=== PATIENT | male | born 1960 | race Caucasian/White ===

== ENCOUNTER 2019-09-01 09:33 | Day surgery (SDC) | payer OTHER ==
[~2019-09-01] VITALS: Ht 180.3 cm; Wt 98.0 kg
[~2019-09-01 09:33] MED LIST: ATOR80TA59 PO; COMBAER6 INH; ISOS60TA2 PO; LISI40TA PO; MAGN400T PO; METO25TA4 PO; MULTCAP PO; NORV5TAB PO; NS 1,000 ML IV ONE; RA T500C2 PO; RANI150T PO; TERA2CAP3 PO; berberine PO
[2019-09-01] MEDS ORDERED: ALBUTEROL SULFATE 2.5 MG/0.5 ML INH NEB SOLN As Ordered ONE (10:44)
[2019-09-01] MEDS ORDERED: ALBUTEROL SULFATE 2.5 MG/0.5 ML INH NEB SOLN INH ONE (11:00)
[2019-09-01] MEDS ORDERED: PROPOFOL 200 MG/20 ML VIAL As Ordered ONE ×2 (11:19→13:03)
[2019-09-01] MEDS ORDERED: LIDOCAINE 2% INJ 100 MG/5 ML SDV (FOR ANES.) As Ordered ONE (11:19)
--- NOTE | 2019-09-01 12:25 | ROOR ---
Patient Name: Jeremy Way Procedure Date: 09/01/2019 11:50 AM Date of : 1960 Age: 58 Room: [facility] Gender: Male Note Status: Finalized Procedure: Total Colonoscopy to Cecum + Cold Snare Polypectomy + Hemoclips Indications: Screening in patient at increased risk: Colorectal cancer in mother before age 60 Providers: Amrik Hayes MD Referring MD: [facility] Mauricio Fields Md Requesting Provider: Medicines: Monitored Anesthesia Care Complications: No immediate complications. Procedure: Pre-Anesthesia Assessment: - The heart rate, respiratory rate, oxygen saturations, blood pressure, adequacy of pulmonary ventilation, and response to care were monitored throughout the procedure. The Colonoscope was introduced through the anus and advanced to the cecum, identified by appendiceal orifice and ileocecal valve. The colonoscopy was performed without difficulty. The patient tolerated the procedure well. The quality of the bowel preparation was excellent. Findings: The perianal and digital rectal examinations were normal. Non-bleeding internal hemorrhoids were found during retroflexion. The hemorrhoids were small and Grade I (internal hemorrhoids that do not prolapse). A small polyp was found at 20 cm proximal to the anus. The polyp was sessile. The polyp was removed with a cold snare. Resection and retrieval were complete. A medium polyp was found at 60 cm proximal to the anus. The polyp was sessile. The polyp was removed with a cold snare. Resection and retrieval were complete. To prevent bleeding after the polypectomy, one hemostatic clip was successfully placed (MR conditional). There was no bleeding at the end of the procedure. The exam was otherwise without abnormality on direct and retroflexion views. Impression: - Non-bleeding internal hemorrhoids. - One small polyp at 20 cm proximal to the anus, removed with a cold snare. Resected and retrieved. - One medium polyp at 60 cm proximal to the anus, removed with a cold snare. Resected and retrieved. Clip (MR conditional) was placed. - The examination was otherwise normal on direct and retroflexion views. - The exam was otherwise normal to the cecum. Recommendation: - Patient has a contact number available for emergencies. The signs and symptoms of potential delayed complications were discussed with the patient. Return to normal activities tomorrow. Written discharge instructions were provided to the patient. - High fiber diet. - Discharge patient to home. - Continue present medications. - Await pathology results. - Telephone GI clinic for pathology results in 1 week. - Repeat colonoscopy in 3 years for surveillance based on pathology results. - Return to referring physician. - The findings and recommendations were discussed with the patient's family. Amrik Hayes MD Amrik Hayes MD 09/01/2019 12:24:46 PM Electronically signed by Amrik Hayes MD Number of Addenda: 0 Note Initiated On: 09/01/2019 11:50 AM Estimated Blood Loss: Estimated blood loss: none.
[2019-09-01 12:45] VITALS: BP 144/68
== END 2019-09-01 13:05 | disposition home or self-care (01) ==
LOC: M OPP 09:33
PROVIDERS: ATTEND Internal Medicine Gastroenterology
DX: Z12.11 Encounter for screening for malignant neoplasm of colon (principal); Z80.0 Family history of malignant neoplasm of digestive organs; K64.0 First degree hemorrhoids; D12.5 Benign neoplasm of sigmoid colon; D12.4 Benign neoplasm of descending colon; I25.10 Atherosclerotic heart disease of native coronary artery without angina pectoris; Z95.5 Presence of coronary angioplasty implant and graft; R00.8 Other abnormalities of heart beat; I25.2 Old myocardial infarction; I10 Essential (primary) hypertension; E78.5 Hyperlipidemia, unspecified; E11.9 Type 2 diabetes mellitus without complications; K21.9 Gastro-esophageal reflux disease without esophagitis; M54.89 Other dorsalgia; M54.2 Cervicalgia; F41.9 Anxiety disorder, unspecified; J44.9 Chronic obstructive pulmonary disease, unspecified; R06.83 Snoring; G47.30 Sleep apnea, unspecified; F17.210 Nicotine dependence, cigarettes, uncomplicated; Z79.899 Other long term (current) drug therapy

== ENCOUNTER → 2022-07-09 | Outpatient (CLI) | payer OTHER ==
[~2022-07-09] MED LIST changes: +ISOS1TAB36 PO; -ISOS60TA2 PO; -LISI40TA PO; +LISI40TA4 PO; -MAGN400T PO; +MAGN400T33 PO; -NS 1,000 ML IV ONE
== END ==
LOC: M PLARAD 08:02
PROVIDERS: ATTEND Internal Medicine
DX: Z53.9 Procedure and treatment not carried out, unspecified reason (principal)

== ENCOUNTER → 2022-07-30 | Outpatient (CLI) | payer OTHER | LOC: M PLARAD 13:22 | PROVIDERS: ATTEND Internal Medicine | DX: R91.1 Solitary pulmonary nodule (principal) | CPT/HCPCS: 78815; A9552 ==

== ENCOUNTER → 2022-08-21 | Outpatient (REF) | payer MEDICARE, OTHER | LOC: M SFHCDERM 17:32 | PROVIDERS: ATTEND Nurse Practitioner Family | DX: D22.5 Melanocytic nevi of trunk (principal); L82.1 Other seborrheic keratosis ==

== ENCOUNTER 2023-05-22 07:17 | Inpatient (IN) | payer MEDICARE, OTHER ==
[2023-05-21 14:20] VITALS: BP 188/85; TEMP 99.3; O2SAT 99
[~2023-05-22] VITALS: Ht 180.3 cm; Wt 88.7 kg
[~2023-05-22 07:17] MED LIST changes: +CALC500T68 PO; +ISOS1TAB35 PO; +JARD1TAB3 PO; +LIDOCAINE 2% 100MG/5ML SDV (FOR ANES.) As Ordered ONE; +METO1TAB32 PO; +NESI25TA PO; +NS 1,000 ML IV ONE; +OMEG350C PO; +OMEP40CA4 PO; +POTA99CA2 PO; +RAMI1CAP21 PO; +SUPETAB44 PO; +TERA1CAP3 PO; +TRAM50TA2 PO; +VITA100093 PO; +VITA80004 PO; +VITMTA PO; +fentaNYL 100 MCG/2 ML INJECTION As Ordered ONE; +propofoL 500 MG/50 ML VIAL As Ordered ONE
[2023-05-22] MEDS ORDERED: hydrALAZINE 20MG/ML 1ML VIAL As Ordered ONE ×2 (08:38→11:41)
[2023-05-22] MEDS ORDERED: VALSARTAN 40MG TABLET (DIOVAN) PO SCH ×2 (09:00→15:00)
[2023-05-22] MEDS ORDERED: MORPHINE 2 MG/ML 1ML VIAL As Ordered ONE (10:08)
[2023-05-22] MEDS ORDERED: MORPHINE 2 MG/ML 1ML VIAL IV ONE (10:10)
[2023-05-22] MEDS ORDERED: NITROGLYCERIN 0.3MG SUBL TAB SL STA (10:32)
[2023-05-22] MEDS ORDERED: ASPIRIN 325 MG TAB PO ONE (10:35)
[2023-05-22] MEDS ORDERED: MORPHINE 2 MG/ML 1ML VIAL IV PRN ×3 (10:50→11:05)
[2023-05-22] MEDS ORDERED: NS 1,000 ML IV SCH (10:50)
[2023-05-22] MEDS ORDERED: MAALOX 30 ML SUSP *UDC PO ONE (11:00)
[2023-05-22 11:05] LABS: HEMATOCRIT 41.7 % (42.0-52.0); HEMOGLOBIN 14.9 g/dl (13.5-17.5); MEAN CORPUSCULAR HEMOGLOBIN 30.7 pg (27.0-33.0); MEAN CORPUSCULAR HGB CONC 35.7 g/dl (32.0-36.5); MEAN CORPUSCULAR VOLUME 85.8 fl (80.0-96.0); PLATELET COUNT, AUTOMATED 172 10^3/uL (150-450); RED BLOOD COUNT 4.86 10^6/uL (4.30-6.10); WHITE BLOOD COUNT 7.2 10^3/uL (4.0-10.0)
[2023-05-22 11:15] VITALS: TEMP 97
[2023-05-22 11:33] LABS: BLOOD UREA NITROGEN 16 MG/DL (9-23); CALCIUM LEVEL 8.2 MG/DL (8.3-10.6); CARBON DIOXIDE LEVEL 26 MMOL/L (20-31); CHLORIDE LEVEL 103 MMOL/L (98-107); CREATININE FOR GFR 0.92 MG/DL (0.70-1.30); GLOMERULAR FILTRATION RATE > 60.0 (>49); GLUCOSE, FASTING 151 MG/DL (74-106); POTASSIUM SERUM 3.7 MMOL/L (3.5-5.1); SODIUM LEVEL 137 MMOL/L (136-145)
[2023-05-22 11:34] LABS: CHOLESTEROL RISK RATIO 2.62 (<5); HDL CHOLESTEROL 43.5 MG/DL (>40); LDL CHOLESTEROL 49.7 MG/DL (<100); NON-HDL-C 70.5 MG/DL
[2023-05-22] MEDS ORDERED: ramipriL 5 MG CAP PO ONE (11:35)
[2023-05-22 11:36] LABS: FREE T4 1.34 NG/DL (0.89-1.76); THYROID STIMULATING HORMONE 1.242 uIU/ML (0.55-4.78)
[2023-05-22] MEDS ORDERED: hydrALAZINE 20MG/ML 1ML VIAL IV ONE ×2 (11:40→12:45)
[2023-05-22 11:50] LABS: HEMOGLOBIN A1c 7.8 % (4.0-6.0)
[2023-05-22] MEDS ORDERED: MORPHINE 4 MG/ML 1ML VIAL IV PRN (12:00)
[2023-05-22] MEDS ORDERED: INSULIN LISPRO (NovoLOG) PER UNIT SC SCH ×2 (12:00→21:00)
[2023-05-22] MEDS ORDERED: GLUCAGON INJ 1MG VIAL SC PRN (13:00)
[2023-05-22] MEDS ORDERED: DEXTROSE 50% 50ML SYRINGE IV PRN (13:00)
[2023-05-22] MEDS ORDERED: GLUCOSE 4GM CHEW TABLET PO PRN (13:00)
[2023-05-22 13:11] VITALS: O2SAT 97
[2023-05-22] MEDS ORDERED: HEPARIN SOD (PORCINE) 5000UNITS/ML 1ML VIAL/SYRINGE IV ONE (13:50)
[2023-05-22] MEDS ORDERED: ISOVUE-370 76% 100ML VIAL As Ordered ONE (13:54)
[2023-05-22] MEDS ORDERED: HEPARIN SOD (PORCINE) 5000UNITS/ML 1ML VIAL/SYRINGE SC SCH (14:00)
[2023-05-22] MEDS ORDERED: HEPARIN SOD (PORCINE) 5000UNITS/ML 1ML VIAL/SYRINGE As Ordered ONE (14:08)
[2023-05-22] MEDS ORDERED: HEPARIN DRIP 25,000 UNITS in IV 1 EA IV SCH (15:00)
[2023-05-22] MEDS ORDERED: HEPARIN SOD (PORCINE) 5000UNITS/ML 1ML VIAL/SYRINGE IV PRN (15:00)
[2023-05-22 15:14] VITALS: BP 188/88
[2023-05-22 16:28] VITALS: BP 173/86
[2023-05-22] MEDS ORDERED: ATORVASTATIN 20 MG TAB PO SCH (21:00)
[2023-05-23] MEDS ORDERED: ASPIRIN 81MG ENTERIC TABLET PO SCH (09:00)
== END 2023-05-22 17:03 | disposition short-term general hospital (02) | DRG 311 ==
LOC: M OPP 07:17 → M PCU 13:49
PROVIDERS: ADMIT Internal Medicine; ATTEND Internal Medicine
PROC: 0DJ08ZZ Inspection of Upper Intestinal Tract, Via Natural or Artificial Opening Endoscopic (ICD-10-PCS; 2023-05-22)
PROC: 0DB58ZX Excision of Esophagus, Via Natural or Artificial Opening Endoscopic, Diagnostic (ICD-10-PCS; principal; 2023-05-22 08:00)
DX: I20.9 Angina pectoris, unspecified (principal); K44.9 Diaphragmatic hernia without obstruction or gangrene; R12 Heartburn; K64.0 First degree hemorrhoids; Z86.010 Personal history of colon polyps; Z80.0 Family history of malignant neoplasm of digestive organs; I16.0 Hypertensive urgency; E11.9 Type 2 diabetes mellitus without complications; I25.10 Atherosclerotic heart disease of native coronary artery without angina pectoris; I25.2 Old myocardial infarction; Z95.2 Presence of prosthetic heart valve; I10 Essential (primary) hypertension; K21.9 Gastro-esophageal reflux disease without esophagitis; Z79.899 Other long term (current) drug therapy